=== PATIENT | male | born 1985 | race Two or more races ===

== ENCOUNTER 2021-11-27 16:17 | Emergency (ER) | payer OTHER ==
[~2021-11-27] VITALS: Ht 162.6 cm; Wt 68.0 kg
--- NOTE | 2021-11-27 16:17 | NUR ---
PT BIB SELF C/O SI NO SPECIFIC PLAN. REQUESTING VOLUNTARY PSYCH ADMISSION. PT IS AAOX4, NOT IN RESPIRATORY DISTRESS, V/S STABLE, KEPT RESTED AND COMFORTABLE. WILL CONTINUE TO MONITOR.
[2021-11-27 16:31] VITALS: BP 127/97
--- NOTE | 2021-11-27 17:28 | NUR ---
Patient eloped from facility. ER MD notified.
== END 2021-11-27 17:29 | disposition left against medical advice (07) ==
LOC: ER 16:21
DX: R45.851 Suicidal ideations (principal); Z60.2 Problems related to living alone